=== PATIENT | male | born 1990 | race Caucasian/White ===

== ENCOUNTER 2025-01-24 18:52 | Emergency (ER) | payer BC ==
[~2025-01-24] VITALS: Ht 193 cm; Wt 103.0 kg
[2025-01-24] MEDS ORDERED: LIDOCAINE 0.5%-EPI 1:200,000 50 ML VIAL ONE (19:13)
[2025-01-24 19:42] VITALS: BP 137/77; TEMP 98.3; O2SAT 99
[2025-01-24] MEDS: LIDOCAINE 1%-EPI 1:100,000 50 ML VIAL IJ ONE (19:45)
[2025-01-24] MEDS ORDERED: CEPH-570 PO (20:00)
== END 2025-01-24 22:17 | disposition home or self-care (01) ==
LOC: ER 18:55
DX: S91.312A Laceration without foreign body, left foot, initial encounter (principal); J45.909 Unspecified asthma, uncomplicated; Z88.2 Allergy status to sulfonamides; W01.0XXA Fall on same level from slipping, tripping and stumbling without subsequent striking against object, initial encounter; Y93.89 Activity, other specified; Y92.89 Other specified places as the place of occurrence of the external cause; Y99.8 Other external cause status
CPT/HCPCS: 12002; 99283; J3490